=== PATIENT | male | born 1945 | race Caucasian/White ===

== ENCOUNTER 2024-07-07 09:17 | Emergency (ER) | payer OTHER ==
[~2024-07-07] VITALS: Ht 182.9 cm; Wt 70.3 kg
[2024-07-07 09:41] VITALS: BP 154/86; PULSE 55; RESP 18; TEMP 98.3; O2SAT 96
[2024-07-07] MEDS: CYCLOBENZAPRINE 10 MG TAB PO ONE (10:05)
[2024-07-07] MEDS: LIDOCAINE 5% 1 EA PATCH TP ONE (10:05)
[2024-07-07] MEDS: KETOROLAC 30 MG/ML VIAL IM ONE (10:06)
[2024-07-07 11:22] VITALS: BP 167/66; PULSE 48; RESP 20; TEMP 97.6; O2SAT 98
[2024-07-08] MEDS ORDERED: NAPR-1704 PO (08:56)
== END 2024-07-07 12:22 ==
LOC: MED 09:17
DX: S46.912A Strain of unspecified muscle, fascia and tendon at shoulder and upper arm level, left arm, initial encounter (principal); M19.012 Primary osteoarthritis, left shoulder; J44.9 Chronic obstructive pulmonary disease, unspecified; R03.0 Elevated blood-pressure reading, without diagnosis of hypertension; Z88.0 Allergy status to penicillin; X58.XXXA Exposure to other specified factors, initial encounter; Y93.89 Activity, other specified; Y92.89 Other specified places as the place of occurrence of the external cause; Y99.8 Other external cause status
CPT/HCPCS: 73030; 96372; 99283; J1885

== ENCOUNTER 2024-07-08 07:15 | Emergency (ER) | payer OTHER ==
[~2024-07-08] VITALS: Ht 182.9 cm; Wt 68.9 kg
[2024-07-08 07:20] VITALS: BP 140/76; PULSE 57; RESP 16; TEMP 98.2; O2SAT 97
[2024-07-08] MEDS ORDERED: LIDOCAINE MPF 1% 5 ML ONE (07:48)
[2024-07-08] MEDS: TRIAMCINOLONE 10 MG/ML 5ML VIAL IA ONE (08:30)
[2024-07-08] MEDS: LIDOCAINE MPF 1% 10 MG/ML VIAL INJ ONE (08:30)
[2024-07-08] MEDS ORDERED: NAPR-1704 PO (08:56)
[2024-07-08] MEDS: HYDROcodone/APAP 5/325 MG 1 TAB TAB PO ONE (09:16)
[2024-07-08 11:13] VITALS: BP 150/70; PULSE 60; RESP 16; TEMP 36.78072; O2SAT 97
== END 2024-07-08 11:13 ==
LOC: MED 07:15
DX: M19.012 Primary osteoarthritis, left shoulder (principal); I10 Essential (primary) hypertension; F17.200 Nicotine dependence, unspecified, uncomplicated; J44.9 Chronic obstructive pulmonary disease, unspecified; Z71.6 Tobacco abuse counseling; Z98.890 Other specified postprocedural states; Z79.899 Other long term (current) drug therapy; Z88.0 Allergy status to penicillin
CPT/HCPCS: 20610; 99283; 99406; J2003; J3301

== ENCOUNTER 2024-07-11 07:27 | Emergency (ER) | payer OTHER ==
[~2024-07-11] VITALS: Ht 182.9 cm; Wt 72.6 kg
[~2024-07-11 07:27] MED LIST: NAPR-1704 PO
[2024-07-11 07:34] VITALS: BP 144/68; PULSE 67; RESP 18; TEMP 97.8; O2SAT 97
[2024-07-11 07:44] VITALS: BP 144/68; PULSE 68; RESP 18; TEMP 97.8; O2SAT 97
[2024-07-11] MEDS: KETOROLAC 30 MG/ML VIAL IM ONE (08:27)
[2024-07-11] MEDS: LIDOCAINE 5% 1 EA PATCH TP ONE (08:28)
[2024-07-11] MEDS ORDERED: LIDO1ADH54 TP (09:05)
[2024-07-11] MEDS ORDERED: IBUP-2218 PO (09:05)
[2024-07-11 12:35] VITALS: BP 141/68; PULSE 70; RESP 16; TEMP 98.1; O2SAT 95
== END 2024-07-11 12:35 ==
LOC: MED 07:27
DX: M19.012 Primary osteoarthritis, left shoulder (principal); J44.9 Chronic obstructive pulmonary disease, unspecified; I10 Essential (primary) hypertension; Z79.899 Other long term (current) drug therapy; Z88.0 Allergy status to penicillin
CPT/HCPCS: 96372; 99283; J1885